=== PATIENT | female | born 1945 | race Caucasian/White ===

== ENCOUNTER 2018-09-30 12:10 | Observation (INO) ==
[2018-09-30 14:16] LABS: Albumin 2.5 G/DL (3.4-5.0); Bilirubin,Total 0.5 MG/DL (0.2-1.0); Calcium 7.9 MG/DL (8.5-10.1); Osmolality,Calculated 284.1 MOS/KG (273-304)
[2018-09-30 14:43] LABS: Basophils % 0.6 % (0.0-0.8); Eosinophils % 1.9 % (0.00-10.9); Hematocrit 28.2 VOL% (35.7-47.0); Hemoglobin 8.8 GM/DL (12.0-16.0); Immature Granulocytes % 0.6 %; Immature Granulocytes Absolute 0.01 #; Lymphocytes # 0.8 10*3/uL (1.4-4.0); Mean Corpuscular HGB Conc 31.2 GM/DL (32-36); Mean Corpuscular Volume 91.9 FL (87-102); Mean Platelet Volume 10.8 FL (9.6-12.0); Monocytes % 36.3 % (1.7-12.7); Neutrophils % 10.6 % (38.7-73.9); Platelet Count 135 T/CUMM (130-400); Red Blood Count 3.07 MC/CUMM (3.8-5.5); Red Cell Distribution Width 14.8 % (9.3-17.3); White Blood Count 1.6 T/CUMM (4-12)
[2018-09-30 15:18] LABS: Band Neutrophils 3 % (0-10); Eosinophils 3 % (0-10); Lymphocytes 48 % (20-55); Segmented Neutrophils 7 % (50-85); Total Cells Counted 100
[2018-09-30 15:19] LABS: Reactive Lymphocytes 2+
[2018-09-30 15:25] LABS: Platelet Satellitism Few
[2018-09-30 15:27] LABS: Platelet Estimate Decreased
[2018-09-30 15:32] LABS: Atypical Lymphocytes 1+
[2018-09-30] MEDS ORDERED: ACETAMINOPHEN 325 MG TABLET PO PRN (16:23)
[2018-09-30] MEDS ORDERED: LACTULOSE 20 GM/30 ML UDCUP PO PRN (16:23)
[2018-09-30] MEDS ORDERED: GLUCAGON 1 MG VIAL IM PRN (16:23)
[2018-09-30] MEDS ORDERED: DEXTROSE 10% 250 ML BAG IV PRN (16:23)
[2018-09-30] MEDS ORDERED: ONDANSETRON 4 MG/2 ML VIAL IV PRN (16:23)
[2018-09-30 17:02] LABS: Thyroid Stimulating Hormone 1.18 uIU/ml (0.358-3.74)
[2018-09-30] MEDS: INSULIN REGULAR 100 UNIT/ML SUBCUT SCH ×2 (17:55→20:59)
[2018-09-30 21:05] LABS: Apearance,Urine CLEAR (Clear); Bacteria,Urine Occasional /HPF (Few); Bilirubin,Urine Negative (Negative); Blood, Urine Negative (Negative); Glucose,Urine (UA) 50 mg/dL (Negative); Hyaline Casts,Urine 1 /LPF (0-3); Ketones,Urine 5 mg/dL (Negative); Mucus,Urine Occasional /LPF (Occasional); Nitrite,Urine Negative (Negative); Protein,Urine 100 MG/DL; RBC,Urine 1 /HPF (0-4); Squamous Epithelial Cell,Urine Occasional /HPF (0-10); Urine Color Yellow (Yellow); Urine Specific Gravity 1.012 (1.001-1.035); Urine Urobilinogen < 2.0 EU/DL (0.2-1.0); WBC,Urine <1 /HPF (0-6)
[2018-10-01] MEDS ORDERED: MAGNESIUM SULF RIDER 4 GM in PREMIX 1 EACH IV PRN (00:10)
[2018-10-01] MEDS ORDERED: MAGNESIUM SULF RIDER 2 GM in PREMIX 1 EACH IV PRN (00:10)
[2018-10-01 05:18] LABS: Basophils % 0.8 % (0.0-0.8); Eosinophils % 2.4 % (0.00-10.9); Hematocrit 26.6 VOL% (35.7-47.0); Hemoglobin 8.3 GM/DL (12.0-16.0); Immature Granulocytes % 0.8 %; Immature Granulocytes Absolute 0.01 #; Lymphocytes # 0.6 10*3/uL (1.4-4.0); Lymphocytes % 47.2 % (21.3-54.2); Mean Corpuscular HGB Conc 31.2 GM/DL (32-36); Mean Platelet Volume 11.1 FL (9.6-12.0); Neutrophils % 16.8 % (38.7-73.9); Platelet Count 129 T/CUMM (130-400); Red Blood Count 2.89 MC/CUMM (3.8-5.5); Red Cell Distribution Width 14.7 % (9.3-17.3); White Blood Count 1.3 T/CUMM (4-12)
[2018-10-01 05:45] LABS: Band Neutrophils 1 % (0-10); Eosinophils 1 % (0-10); Hypochromasia 1+; Lymphocytes 58 % (20-55); Platelet Estimate Normal; Segmented Neutrophils 16 % (50-85); Total Cells Counted 100
[2018-10-01 05:46] LABS: Atypical Lymphocytes Few
[2018-10-01 05:48] LABS: Calcium 8.3 MG/DL (8.5-10.1); Osmolality,Calculated 298.5 MOS/KG (273-304)
[2018-10-01] MEDS: INSULIN REGULAR 100 UNIT/ML SUBCUT SCH ×2 (08:39→11:55)
[2018-10-01] MEDS ORDERED: PANTOPRAZOLE 40 MG TABLET PO SCH (09:00)
[2018-10-01 12:58] VITALS: BP 106/48
[2018-10-01 14:54] LABS: Folate > 24.0 NG/ML (5.4-24.0); Vitamin B12 823 PG/ML (211-911)
[2018-10-01] MEDS ORDERED: SEVELAMER CARBONATE 800 MG TABLET PO SCH (17:00)
[2018-10-01] MEDS ORDERED: amLODIPine 2.5 MG TABLET PO SCH (21:00)
[2018-10-01] MEDS ORDERED: METOPROLOL TARTRATE 25 MG TABLET PO SCH (21:00)
[2018-10-01] MEDS ORDERED: ATORVASTATIN 20 MG TABLET PO SCH (21:00)
[2018-10-01] MEDS ORDERED: traMADol 50 MG TABLET PO SCH (21:00)
[2018-10-01] MEDS ORDERED: BUMETANIDE 1 MG TABLET PO SCH (21:00)
[2018-10-02] MEDS ORDERED: SPIRONOLACTONE 25 MG TABLET PO SCH (09:00)
[2018-10-02] MEDS ORDERED: MULTIVITAMIN (BEROCCA) TABLET PO SCH (09:00)
[2018-10-02] MEDS ORDERED: CALCITRIOL 0.5 MCG CAPSULE PO SCH (09:00)
[2018-10-03] MEDS ORDERED: ERGOCALCIFEROL 50,000 UNIT CAPSULE PO SCH (09:00)
== END 2018-10-01 16:10 | disposition home or self-care (01) ==
LOC: N.ED 12:10 → INTOOBSV 15:15 → N.EDINP 15:15 → N.4E 16:09